=== PATIENT | female | born 1975 | race Caucasian/White ===

== ENCOUNTER 2022-10-02 15:00 | Outpatient (OUT) | payer BC, OTHER, SELFPAY ==
--- NOTE | 2022-10-02 | CONS_ITS ---
CONSULTATION DATE: ??10/02/2022 TO:? Alpa Currie M.D. CHIEF COMPLAINT:? Includes right mid back pain. HISTORY:? She reports the pain as being 5-7/10, sharp in character, with a deep aching component, increased with activities such as standing, walking and performing transitioning maneuvers.? She feels most comfortable with what she describes as ?leaning sideways? and she feels most comfortable also in the semi- recumbent position.? She denies any change in bowel and bladder habits or new sensorimotor changes in the lower extremities. MEDICATION:? Current medication includes a Medrol Dosepak which she is just finishing up, meloxicam 15 mg daily and baclofen 10 mg t.i.d.? She reports these medications do improve some of her symptomatology, and she denies any side effects with the same. EXAM:? Her examination is notable for the patient having no clinical radiculopathy or myelopathy involving the lower extremities.? Patient had severe pain with thoracic facet loading maneuvers on the right side at T8-9, T9-10 on the right side, with associated myofascial spasm of the thoracic paravertebral muscles. IMPRESSION: ?Our impression is patient has chronic pain secondary to thoracic spondylosis clinically, effecting the right side at T8-9, T9-10, with facet joint loading pain clinically and myofascial spasm. RECOMMENDATIONS:? I have recommended she increase her baclofen 10 mg pills, half a pill to one pill t.i.d. as tolerated and to proceed with a diagnostic right side T8-9, T9-10 facet joint injection under fluoroscopic guidance.? This will be her second such injection.? After her initial injection on 08/08/2022, she reports her pain was improved by 100%, lasting for at least two hours, with recurrence of pain back to her baseline. As part of providing excellent, safe, comprehensive care, the following was completed at our patient's visit: 1. A medication reconciliation and review to ensure accurate knowledge of current/active medications, including asking our patients to inform us about any [id number] medications or herbal remedies/nutritional supplements/alternative remedies. 2. A review to specifically ensure our patients have had annual screening for: elevated body mass index (BMI, see intake chart for exact total), tobacco use, screening for depression, and screening for unhealthy alcohol use.? When screening is concerning, patients are provided with education and the specific recommendation to discuss the concerning health issue and treatment options with their primary care provider. AUGUSOT
== END 2022-10-02 15:01 | disposition home or self-care (01) ==
LOC: PM 15:00
PROVIDERS: PCP Family Medicine; Visit Provider Anesthesiology Pain Medicine
DX: M47.814 Spondylosis without myelopathy or radiculopathy, thoracic region (principal); G89.29 Other chronic pain; M62.838 Other muscle spasm
CPT/HCPCS: G0463

== ENCOUNTER 2023-04-04 14:29 | Outpatient (OUT) | payer BC, SELFPAY ==
--- NOTE | 2023-04-04 14:58 | P.CN_ITS ---
Consult Note: HPI Data of Consult Patient: known to practice within the last 3 years Consult date: 04/04/23 Requesting Physician: Lakeisha Orourke NP Primary Care Provider: ROBERT DELA CRUZ Consult Narrative Reason for consult: f/u Narrative: Lu Pérez a pleasant 47 year old female presents for evaluation and management of chronic pain, today pain 2/10. Patient reports improved pain since last visit, was finding moderate benefit to mobic and baclofen and is needing refills at this time. cc:: CC: Lakeisha Orourke NP Review of Systems 2 ROS0 Status of ROS 10 or more systems reviewed and unremark able except as noted in history and below Musculoskeletal Reports: back pain PFSH PFSH Medical History (Updated 04/04/23 @ 15:05 by Lakeisha Orourke NP) Obesity ?E66.9 - Obesity, unspecified (ICD-10) Surgical History H/O dilation and curettage ?Z98.890 - Other specified postprocedural states (ICD-10) S/P nasal surgery ?Z98.890 - Other specified postprocedural states (ICD-10) S/P carpal tunnel release ?Z98.890 - Other specified postprocedural states (ICD-10) H/O myringotomy ?Z98.890 - Other specified postprocedural states (ICD-10) S/P ?Z98.891 - History of uterine scar from previous surgery (ICD-10) Hx of tonsillectomy ?Z90.89 - Acquired absence of other organs (ICD-10) Meds Home Medications and Allergies Home Medications Medication Instructions Recorded Confirmed Type azelastine 137 mcg (0.1 %) nasal intranasal Q12H 10/11/22 History spray aerosol baclofen 10 mg tablet 10 mg PO TID 10/11/22 History calcium carbonate 500 mg-vitamin tab PO QDAY 10/11/22 History D3 10 mcg (400 unit) tablet (Oyster Shell Calcium-Vitamin D3) famotidine 20 mg tablet 20 mg PO QDAY 10/11/22 History ferrous sulfate 325 mg (65 mg 325 mg PO DAILY 10/11/22 History iron) tablet (Feosol) fexofenadine 60 mg tablet (Felicia 60 mg PO Q24H 10/11/22 History Allergy) ibuprofen 600 mg tablet (IBU) 600 mg PO Q6H PRN pain 10/11/22 History levonorgestrel-ethinyl estradiol 1 tab PO DAILY 10/11/22 History 0.1 mg-20 mcg tablet (Falmina (28)) magnesium oxide 400 mg (241.3 mg mg PO QDAY 10/11/22 History magnesium) tablet meloxicam 15 mg tablet 15 mg PO QDAY 10/11/22 History montelukast 10 mg tablet 10 mg PO QDAY 10/11/22 History multivitamin with folic acid 400 tab PO QDAY 10/11/22 History mcg tablet (Tab-A-Shaun) omega 1-uix-cme-fish oil 300 cap PO QDAY 10/11/22 History mg-1,000 mg capsule vitamin B complex (B tab PO Q24H 10/11/22 History Complex-Vitamin B12 tablet) Allergies Allergy/AdvReac Type Severity Reaction Status Date / Time Penicillins Allergy Hives Verified 10/11/22 15:00 Exam Constitutional Documenting provider has reviewed patient's vital signs: yes Common normals: no apparent distress, oriented x3, healthy appearing, alert and well nourished General appearance: cooperative HENOR Common normals: normocephalic, hearing grossly normal bilaterally and moist oral mucous membranes Head and scalp: normocephalic Eye Common normals: PERRL Pupil: PERRL Neck & C-Spine Common normals: full ROM General: normal visual inspection Chest Common normals: inspection of chest normal Respiratory Common normals: normal respiratory effort, no retractions and no use of accessory muscles Back & Pelvis Thoracic spine/upper back: pain with ROM and paraspinal muscle tenderness Back image (female): 2 1. Extremity Common normals: normal to inspection and full ROM Neuro Common normals: oriented x3, CN's II-XII intact bilaterally, moves all extremities, no focal motor deficits, no sensory deficits noted and deep tendon reflexes 2+ bilaterally Sensorium/orientation: alert Motor exam: strength 5/5 throughout and no movement abnormalities noted Psych Common normals: mental status grossly normal, thought process normal, cooperative, affect normal, speech normal and activity/motor behavior normal Speech: normal speech Thought process: normal thought process Assessment and Plan Assessment and Plan (1) Thoracic spondylosis: (2) Myofascial pain: (3) Obesity: Plan continue mobic 15mg daily and baclofen 10mg TID PRN, tolerating well without side effects f/u 6 months, sooner if needed
== END 2023-04-04 14:30 | disposition home or self-care (01) ==
PROVIDERS: PCP Family Medicine; Visit Provider Nurse Practitioner
DX: M47.814 Spondylosis without myelopathy or radiculopathy, thoracic region (principal); M79.18 Myalgia, other site; E66.9 Obesity, unspecified
CPT/HCPCS: G0463

== ENCOUNTER 2023-10-30 14:30 | Outpatient (OUT) | payer BC, SELFPAY ==
--- NOTE | 2023-10-30 15:37 | P.CN_ITS ---
Consult Note: HPI Data of Consult Patient: known to practice within the last 3 years Consult date: 04/04/23 Requesting Physician: Lakeisha Orourke NP Primary Care Provider: ROBERT DELA CRUZ Consult Narrative Reason for consult: f/u Narrative: Lu Pérez a pleasant 47 year old female presents for evaluation and management of chronic pain, today pain 1/10, increasing to 8/10 some days with standing walking swisting pulling and weather changes. Patient reports improved pain since last visit, continues to find benefit from mobic 15mg daily and baclofen 10mg BID PRN without side effects. cc:: CC: Lakeisha Orourke NP Review of Systems ROS Status of ROS 10 or more systems reviewed and unremark able except as noted in history and below PFSH [facility] Medical History (Updated 04/04/23 @ 15:05 by Lakeisha Orourke NP) Obesity ?E66.9 - Obesity, unspecified (ICD-10) Surgical History H/O dilation and curettage ?Z98.890 - Other specified postprocedural states (ICD-10) S/P nasal surgery ?Z98.890 - Other specified postprocedural states (ICD-10) S/P carpal tunnel release ?Z98.890 - Other specified postprocedural states (ICD-10) H/O myringotomy ?Z98.890 - Other specified postprocedural states (ICD-10) S/P ?Z98.891 - History of uterine scar from previous surgery (ICD-10) Hx of tonsillectomy ?Z90.89 - Acquired absence of other organs (ICD-10) Meds Home Medications and Allergies Home Medications ?Medication ?Instructions ?Recorded ?Confirmed ?Type azelastine 137 mcg (0.1 %) nasal intranasal Q12H 10/11/22 History spray baclofen 10 mg tablet 10 mg PO TID 10/11/22 History calcium carbonate 500 mg-vitamin tab PO QDAY 10/11/22 History D3 10 mcg (400 unit) tablet (Oyster Shell Calcium-Vitamin D3) famotidine 20 mg tablet 20 mg PO QDAY 10/11/22 History ferrous sulfate 325 mg (65 mg 325 mg PO DAILY 10/11/22 History iron) tablet (Feosol) fexofenadine 60 mg tablet (Felicia 60 mg PO Q24H 10/11/22 History Allergy) ibuprofen 600 mg tablet (IBU) 600 mg PO Q6H PRN pain 10/11/22 History levonorgestrel-ethinyl estradiol 1 tab PO DAILY 10/11/22 History 0.1 mg-20 mcg tablet (Falmina (28)) magnesium oxide 400 mg (241.3 mg mg PO QDAY 10/11/22 History magnesium) tablet meloxicam 15 mg tablet 15 mg PO QDAY 10/11/22 History montelukast 10 mg tablet 10 mg PO QDAY 10/11/22 History multivitamin with folic acid 400 tab PO QDAY 10/11/22 History mcg tablet (Tab-A-Shaun) omega 3-buv-hqa-fish oil 300 cap PO QDAY 10/11/22 History mg-1,000 mg capsule vitamin B complex (B tab PO Q24H 10/11/22 History Complex-Vitamin B12 tablet) baclofen 10 mg tablet 10 mg PO TID #90 tabs 04/04/23 Rx meloxicam 15 mg tablet 15 mg PO DAILY #30 tabs 04/04/23 Rx baclofen 10 mg tablet 10 mg PO BID PRN muscle spasm #180 10/30/23 Rx tabs meloxicam 15 mg tablet 15 mg PO DAILY #90 tabs 10/30/23 Rx Allergies Allergy/AdvReac Type Severity Reaction Status Date / Time Penicillins Allergy Hives Verified 10/11/22 15:00 Exam Constitutional Documenting provider has reviewed patient's vital signs: yes Common normals: no apparent distress, oriented x3, healthy appearing, alert and well nourished General appearance: cooperative HENKY Common normals: normocephalic, hearing grossly normal bilaterally and moist oral mucous membranes Head and scalp: normocephalic Eye Common normals: PERRL Pupil: PERRL Neck & C-Spine Common normals: full ROM General: normal visual inspection Chest Common normals: inspection of chest normal Respiratory Common normals: normal respiratory effort, no retractions and no use of accessory muscles Back & Pelvis Thoracic spine/upper back: normal to inspection and thoracic ROM normal Lumbar spine/lower back: normal to inspection, lumbar ROM normal and straight leg raise negative bilaterally Sacroiliac joints: SI joints normal Extremity Common normals: normal to inspection and full ROM Neuro Common normals: oriented x3, CN's II-XII intact bilaterally, moves all extremities, no focal motor deficits, no sensory deficits noted and deep tendon reflexes 2+ bilaterally Sensorium/orientation: alert Motor exam: strength 5/5 throughout and no movement abnormalities noted Psych Common normals: mental status grossly normal, thought process normal, cooperative, affect normal, speech normal and activity/motor behavior normal Speech: normal speech Thought process: normal thought process Results Additional Findings Additional findings: If on a controlled substance or opioids, I have checked an [place] report on this patient and there are no aberrancies noted in the prescribing history.??If on a controlled substance or opioid a drug screen was completed and reviewed within the last year, and if there has not been a drug screen completed we ordered one today to monitor higher risk, state monitored pain medication use. As part of providing excellent, safe, comprehensive care, the following was completed at our patient's visit: 1. A medication reconciliation and review to ensure accurate knowledge of current/active medications, including asking our patients to inform us about any [id number] medications or herbal remedies/nutritional supplements/alternative remedies. 2. A review to specifically ensure our patients have had annual screening for screening for depression, screening for tobacco use, and screening for unhealthy alcohol use. For concerning screenings had a discussion with the patient, provided patient education, and recommended follow-up with primary care provider when appropriate. If patient noted with a risk of falling, they received education on strength, gait, and balance training to prevent future risk of falling. Assessment and Plan Assessment and Plan (1) Thoracic spondylosis: (2) Myofascial pain: Plan continue mobic 15mg daily and baclofen 10mg BID PRN pain/spasms f/u PRN, PCP can manage mobic/baclofen
== END 2023-10-30 14:31 ==
LOC: PM 14:31
PROVIDERS: PCP Family Medicine; Visit Provider Nurse Practitioner
DX: M47.814 Spondylosis without myelopathy or radiculopathy, thoracic region (principal); M79.18 Myalgia, other site
CPT/HCPCS: G0463